=== PATIENT | female | born 1940 | race Caucasian/White ===

== ENCOUNTER 2017-03-19 10:09 | Emergency (ER) | payer BC ==
[2017-03-19 10:20] VITALS: BP 135/87; PULSE 115; TEMP 97; BMI 23.0
[2017-03-19] MEDS ORDERED: LIDOCAINE 1%/EPI 1:100000 (20 ML MULTI DOSE VIAL) ONE (10:55)
--- NOTE | 2017-03-19 11:49 | PDOC ---
History of Present Illness - General Chief Complaint: Oral Ulcers Stated Complaint: SWOLLEN GUMS Time Seen by Provider: 03/19/17 10:36 History Source: Patient Exam Limitations: No Limitations - History of Present Illness Initial Comments: 03/19/17 11:41 Patient came to emergency department with persistent bleeding gums, lower front tooth edge. Patient has known "small bump" that intermittently bleeds. [facility] dentist and dental hygienist are aware of this area and have cleaned it carefully over the past few years. [facility] 2 days ago had an onset of bleeding and has had very difficult time getting the bleeding to stop where last night she said she had not been able to sleep all night due to the bleeding. Timing/Duration: unsure, getting worse Severity: mild, moderate Past History - Travel Traveled outside of the country in the last 30 days: No Close contact w/someone who was outside of country & ill: No - Past Medical History Allergies/Adverse Reactions: Allergies Allergy/AdvReac Type Severity Reaction Status Date / Time codeine Allergy Verified 03/19/17 10:21 cortisone Allergy Verified 03/19/17 10:21 Penicillins Allergy Verified 03/19/17 10:21 Sulfa (Sulfonamide Allergy Verified 03/19/17 10:21 Antibiotics) Asthma: Yes COPD: No HTN: Yes Hypercholesterolemia: Yes Thyroid Disease: Yes - Suicide/Smoking/Psychosocial Hx Smoking History: Never smoked Review of Systems - Review of Systems Able to Perform ROS?: Yes Is the patient limited Austrian proficient: Yes Constitutional: Yes: Symptoms Reported ( ), See HPI, Malaise. No: Chills, Fever HEENTM: Yes: Symptoms Reported, See HPI, Mouth Pain (lesion to the lower anterior aspect of gingival surface of lower front teeth times many years that intermittently bleeds), Dental Problems Musculoskeletal: No: Symptoms Reported Integumentary: No: Symptoms Reported *Physical Exam - Vital Signs Last Vital Signs Temp Pulse Resp BP Pulse Ox 97 F L 115 H 20 135/87 99 03/19/17 10:17 03/19/17 10:17 03/19/17 10:17 03/19/17 10:17 03/19/17 10:17 - Physical Exam General Appearance: Yes: Nourished, Appropriately Dressed, Apparent Distress, Mild Distress, Moderate Distress HEENT: positive: TMs Normal, Pharynx Normal, Other (lesion noted between the 2 lower front teeth at the tooth insertion site consistent with a small angioma that is actively bleeding, does not appear pulsatile however active. Dentition are intact, no other gingival injury/lesion or any obvious dental decay.) Neck: positive: Supple. negative: Lymphadenopathy (R), Lymphadenopathy (L) Respiratory/Chest: positive: Lungs Clear, Normal Breath Sounds Gastrointestinal/Abdominal: positive: Soft. negative: Tender Extremity: positive: Normal Capillary Refill, Normal Inspection Integumentary: positive: Normal Color. negative: Pale Neurologic: positive: general cargo clerk II-XII NML intact, Fully Oriented, Alert, Normal Mood/ Affect, Normal Response, Motor Strength 5/5 Procedures - Additional Procedures Additional Procedures: other (cauterization of bleeding angioma to anterior lower gum achieved by using 2% lidocaine with epinephrine approximately 1 mL. No recurrence of bleeding after approximately 30 minutes of observation) *DC/Admit/Observation/Transfer Diagnosis at time of Disposition: Angioma - Discharge Dispostion Disposition: HOME Condition at time of disposition: Stable Admit: No - Referrals Referrals: Addi Ureña MD [Primary Care Provider] - - Patient Instructions Additional Instructions: Rest, drink lots of cold fluids: water, ice chips keep mouth clean and rinse after each meal Avoid hard chewing foods, stick to ice cream, Jell-O, yogurt etc. Bleeding reoccurs, use gauze as directed to hold pressure on area for 15 minutes nonstop. If bleeding does not stop may return to emergency department Tylenol or Motrin for fever and pain Seek dental appointment as soon as possible for evaluation of dental injury/pain Followup with private physician in one to 2 days as needed Return to emergency department for worsened symptoms, fevers, swelling to face or worsened pain - Post Discharge Activity
== END 2017-03-19 12:09 | disposition home or self-care (01) ==
LOC: JER 10:09 → JERFT 10:09
DX: D18.09 Hemangioma of other sites (principal); I10 Essential (primary) hypertension; E78.00 Pure hypercholesterolemia, unspecified; E07.89 Other specified disorders of thyroid
CPT/HCPCS: 99281-25

== ENCOUNTER 2024-03-29 18:18 | Inpatient (IN) | payer BC ==
[2024-03-29 18:42] VITALS: BMI 24.7
[2024-03-29 20:37] LABS: BASO % 0.1 % (0-2.0); HEMATOCRIT 39.7 % (32.4-45.2); HEMOGLOBIN 13.4 GM/dL (10.7-15.3); LYMPH % 3.3 % (8-40); MCHC 33.7 g/dl (32.0-36.0); MEAN CELL VOLUME 88.9 fl (80-96); MEAN PLT VOLUME 7.5 fl (7.5-11.1); MONO % 5.5 % (3.8-10.2); NEUT % 91.1 % (42.8-82.8); PLATELET COUNT 254 10^3/uL (134-434); RBC 4.46 M/mm3 (3.60-5.2); WHITE BLOOD COUNT 14.5 K/mm3 (4.0-10.0)
[2024-03-29 20:53] LABS: POTASSIUM 3.4 mmol/L (3.5-5.1)
[2024-03-29 20:55] LABS: CALCIUM 9.4 mg/dL (8.5-10.1)
[2024-03-29 20:56] LABS: ALBUMIN 3.9 g/dl (3.4-5.0); BLOOD UREA NITROGEN 12.9 mg/dL (7-18)
[2024-03-29 20:59] LABS: CREATININE 0.5 mg/dL (0.55-1.3)
[2024-03-29] MEDS: SODIUM CHLORIDE 0.9% 500 ML INFUS.BAG IV ONE (21:00)
[2024-03-29 21:01] LABS: BILIRUBIN,TOTAL 1.1 mg/dL (0.2-1); TOT PROT 7.1 g/dl (6.4-8.2)
[2024-03-29 21:07] LABS: ANISOCYTOSIS 1+; MACROCYTOSIS 0
[2024-03-29 23:06] LABS: PH,URINE 7.5 (5.0-8.0); URINE APPEARANCE CLEAR; URINE BILIRUBIN NEGATIVE (NEGATIVE); URINE COLOR YELLOW; URINE GLUCOSE (UA) NEGATIVE (NEGATIVE); URINE KETONE 1+ (NEGATIVE); URINE LEUK ESTERASE 1+ (NEGATIVE); URINE NITRITE NEGATIVE (NEGATIVE); URINE PROTEIN NEGATIVE (NEGATIVE); URINE UROBILINOGEN 0.2 mg/dL (0.2-1.0)
[2024-03-29 23:09] LABS: EPI CELLS 1.6 /uL (0-25.1); HYALINE CASTS 0.27 /uL (0-3.1); URINE BACTERIA 44.3 /uL (0-1359); URINE RBC 28.1 /uL (0-23.9)
[2024-03-29] MEDS ORDERED: ASPIRIN 81 MG CHEWABLE TABLETS ONE (23:51)
[2024-03-29] MEDS: ASPIRIN 81 MG CHEWABLE TABLETS PO ONE (23:56)
[2024-03-30 00:28] LABS: INR 1.02 (0.83-1.09); PROTHROMBIN TIME (PATIENT) 11.1 SEC (9.7-13.0)
[2024-03-30 00:31] LABS: ACTIVATED PTT 30.9 SECONDS (25.2-36.5)
[2024-03-30] MEDS ORDERED: POTASSIUM CHLORIDE ORAL LIQUID 20 MEQ/15 ML ONE (01:07)
[2024-03-30] MEDS: POTASSIUM CHLORIDE TABS 20 MEQ TABLET.ER (FP) PO ONE (01:12)
[2024-03-30] MEDS ORDERED: ACETAMINOPHEN 325 MG TABLET (FP) PO PRN (05:52)
[2024-03-30] MEDS: LEVOTHYROXINE NA 25 MCG TABLET (FP) PO SCH (06:35)
[2024-03-30] MEDS: ACETAMINOPHEN 325 MG TABLET (FP) PO PRN (07:04)
[2024-03-30 08:13] LABS: BASO % 0.1 % (0-2.0); HEMATOCRIT 38.1 % (32.4-45.2); HEMOGLOBIN 13.1 GM/dL (10.7-15.3); LYMPH % 9.5 % (8-40); MCH 30.9 pg (25.7-33.7); MCHC 34.6 g/dl (32.0-36.0); MEAN CELL VOLUME 89.4 fl (80-96); MONO % 9.3 % (3.8-10.2); NEUT % 81.1 % (42.8-82.8); PLATELET COUNT 275 10^3/uL (134-434); RBC 4.26 M/mm3 (3.60-5.2); RDW 12.9 % (11.6-15.6)
[2024-03-30 08:28] LABS: POTASSIUM 3.7 mmol/L (3.5-5.1)
[2024-03-30 08:34] LABS: CALCIUM 8.9 mg/dL (8.5-10.1)
[2024-03-30 08:35] LABS: ALBUMIN 3.5 g/dl (3.4-5.0); BLOOD UREA NITROGEN 10.6 mg/dL (7-18); MAGNESIUM 2.2 mg/dL (1.8-2.4)
[2024-03-30 08:38] LABS: BILIRUBIN,TOTAL 1.1 mg/dL (0.2-1); CREATININE 0.5 mg/dL (0.55-1.3); TOT PROT 6.4 g/dl (6.4-8.2)
[2024-03-30 08:39] LABS: PHOSPHOROUS 2.5 mg/dL (2.5-4.9)
[2024-03-30] MEDS: CEFTRIAXONE 1 G/50 ML PREMIX 50 ML IVPB SCH (09:38)
[2024-03-30] MEDS ORDERED: CEFTRIAXONE 1 G/50 ML PREMIX 50 ML IVPB SCH (10:00)
[2024-03-30] MEDS ORDERED: PATIENT'S OWN MEDICATION (NON-FORMULARY) (Lifitegrast [Xiidra] 1 EACH Droperette) OP SCH (10:00)
[2024-03-30] MEDS ORDERED: ENOXAPARIN NA (PORCINE) 40 MG/0.4 ML DISP.SYRIN SQ SCH (10:00)
[2024-03-30] MEDS: amLODIPine BESYLATE 5 MG TABLET (FP) PO SCH (10:01)
[2024-03-30] MEDS: ENOXAPARIN NA (PORCINE) 60 MG/0.6 ML DISP.SYRIN SQ ONE (10:01)
[2024-03-30] MEDS: VERAPAMIL HCL 240 MG E.R. TABLET PO SCH (10:01)
[2024-03-30] MEDS: CLOPIDOGREL BISULFATE 75 MG TABLET (FP) PO SCH (10:01)
[2024-03-30] MEDS: SODIUM CHLORIDE 1,000 ML IV SCH (10:02)
[2024-03-30] MEDS: AMITRIPTYLINE HCL 25 MG TABLET PO SCH (11:09)
[2024-03-30] MEDS: PATIENT'S OWN MEDICATION (NON-FORMULARY) (Lifitegrast [Xiidra] 1 EACH) OP SCH (13:48)
[2024-03-30] MEDS: ENOXAPARIN NA (PORCINE) 60 MG/0.6 ML DISP.SYRIN SQ SCH (21:55)
[2024-03-31] MEDS: ARTIFICIAL TEARS OPHTHALMIC DROPS OU ONE (02:08)
[2024-03-31] MEDS: AMITRIPTYLINE HCL 25 MG TABLET PO ONE (02:09)
[2024-03-31 07:41] LABS: HEMATOCRIT 37.8 % (32.4-45.2); HEMOGLOBIN 12.5 GM/dL (10.7-15.3); MCH 30.2 pg (25.7-33.7); MCHC 33.2 g/dl (32.0-36.0); MEAN CELL VOLUME 90.9 fl (80-96); PLATELET COUNT 218 10^3/uL (134-434); RBC 4.16 M/mm3 (3.60-5.2); RDW 13.1 % (11.6-15.6); WHITE BLOOD COUNT 5.3 K/mm3 (4.0-10.0)
[2024-03-31 08:02] LABS: POTASSIUM 3.2 mmol/L (3.5-5.1)
[2024-03-31 08:04] LABS: MAGNESIUM 1.9 mg/dL (1.8-2.4)
[2024-03-31 08:05] LABS: BLOOD UREA NITROGEN 6.6 mg/dL (7-18); CALCIUM 8.2 mg/dL (8.5-10.1)
[2024-03-31 08:08] LABS: CREATININE 0.4 mg/dL (0.55-1.3)
[2024-03-31 08:09] LABS: TOT PROT 5.9 g/dl (6.4-8.2)
[2024-03-31] MEDS ORDERED: ENOXAPARIN NA (PORCINE) 60 MG/0.6 ML DISP.SYRIN SQ SCH (10:00)
[2024-03-31] MEDS: AMITRIPTYLINE HCL 25 MG TABLET PO SCH (21:46)
[2024-03-31] MEDS: ATORVASTATIN CA 40 MG TABLET (FP) PO SCH (21:46)
[2024-03-31] MEDS: POTASSIUM CHLORIDE TABS 20 MEQ TABLET.ER (FP) PO SCH (21:47)
[2024-03-31] MEDS ORDERED: ATORVASTATIN CA 40 MG TABLET (FP) PO SCH (22:00)
[2024-03-31] MEDS ORDERED: ATORVASTATIN CA 80 MG TABLET (FP) PO SCH (22:00)
[2024-03-31] MEDS: POTASSIUM CHLORIDE ORAL LIQUID 20 MEQ/15 ML PO ONE (22:28)
[2024-04-01 08:12] LABS: POTASSIUM 3.4 mmol/L (3.5-5.1)
[2024-04-01 08:14] LABS: ALBUMIN 3.2 g/dl (3.4-5.0); BLOOD UREA NITROGEN 8.1 mg/dL (7-18); CALCIUM 8.6 mg/dL (8.5-10.1)
[2024-04-01 08:18] LABS: CREATININE 0.3 mg/dL (0.55-1.3)
[2024-04-01 08:19] LABS: BILIRUBIN,TOTAL 0.9 mg/dL (0.2-1); TOT PROT 6.6 g/dl (6.4-8.2)
[2024-04-02 08:07] LABS: BASO % 0.4 % (0-2.0); EOS % 1.4 % (0-4.5); LYMPH % 21.3 % (8-40); MCHC 33.4 g/dl (32.0-36.0); MEAN CELL VOLUME 89.9 fl (80-96); MEAN PLT VOLUME 7.8 fl (7.5-11.1); MONO % 10.5 % (3.8-10.2); NEUT % 66.4 % (42.8-82.8); PLATELET COUNT 259 10^3/uL (134-434); RBC 4.68 M/mm3 (3.60-5.2); WHITE BLOOD COUNT 4.9 K/mm3 (4.0-10.0)
[2024-04-02 08:09] LABS: POTASSIUM 3.5 mmol/L (3.5-5.1)
[2024-04-02 08:16] LABS: BLOOD UREA NITROGEN 11.4 mg/dL (7-18)
[2024-04-02 08:17] LABS: ALBUMIN 3.1 g/dl (3.4-5.0); MAGNESIUM 2.1 mg/dL (1.8-2.4)
[2024-04-02 08:20] LABS: CREATININE 0.4 mg/dL (0.55-1.3)
[2024-04-02 08:21] LABS: TOT PROT 6.2 g/dl (6.4-8.2)
[2024-04-02 08:25] LABS: BILIRUBIN,TOTAL 0.9 mg/dL (0.2-1)
[2024-04-02] MEDS: ENOXAPARIN NA (PORCINE) 40 MG/0.4 ML DISP.SYRIN SQ SCH (10:50)
[2024-04-02] MEDS: metoPROLOL SUCCINATE 25 MG TAB.SR.24H (FP) PO SCH (12:41)
[2024-04-03 07:38] LABS: BASO % 0.4 % (0-2.0); EOS % 3.1 % (0-4.5); HEMATOCRIT 40.3 % (32.4-45.2); HEMOGLOBIN 13.6 GM/dL (10.7-15.3); MCH 30.4 pg (25.7-33.7); MCHC 33.7 g/dl (32.0-36.0); MEAN CELL VOLUME 90.4 fl (80-96); MEAN PLT VOLUME 7.8 fl (7.5-11.1); NEUT % 57.5 % (42.8-82.8); PLATELET COUNT 254 10^3/uL (134-434); RBC 4.45 M/mm3 (3.60-5.2); RDW 13.1 % (11.6-15.6); WHITE BLOOD COUNT 4.3 K/mm3 (4.0-10.0)
[2024-04-03 07:49] LABS: POTASSIUM 3.6 mmol/L (3.5-5.1)
[2024-04-03 07:52] LABS: CALCIUM 8.7 mg/dL (8.5-10.1)
[2024-04-03 07:53] LABS: BLOOD UREA NITROGEN 19.8 mg/dL (7-18)
[2024-04-03 07:56] LABS: CREATININE 0.5 mg/dL (0.55-1.3); MAGNESIUM 2.2 mg/dL (1.8-2.4)
[2024-04-03 07:57] LABS: BILIRUBIN,TOTAL 0.8 mg/dL (0.2-1)
[2024-04-03] MEDS: amLODIPine BESYLATE 5 MG TABLET (FP) PO SCH (09:34)
[2024-04-03] MEDS: ARTIFICIAL TEARS OPHTHALMIC DROPS OU PRN (16:12)
[2024-04-04 09:13] LABS: BASO % 0.3 % (0-2.0); EOS % 2.6 % (0-4.5); HEMATOCRIT 38.6 % (32.4-45.2); HEMOGLOBIN 13.2 GM/dL (10.7-15.3); LYMPH % 22.8 % (8-40); MCH 30.5 pg (25.7-33.7); MCHC 34.2 g/dl (32.0-36.0); MEAN CELL VOLUME 89.2 fl (80-96); MEAN PLT VOLUME 8.1 fl (7.5-11.1); MONO % 10.9 % (3.8-10.2); NEUT % 63.4 % (42.8-82.8); PLATELET COUNT 273 10^3/uL (134-434); RBC 4.33 M/mm3 (3.60-5.2); RDW 13.1 % (11.6-15.6); WHITE BLOOD COUNT 4.7 K/mm3 (4.0-10.0)
[2024-04-04 09:28] LABS: POTASSIUM 3.9 mmol/L (3.5-5.1)
[2024-04-04 09:35] LABS: CALCIUM 8.8 mg/dL (8.5-10.1)
[2024-04-04 09:36] LABS: BLOOD UREA NITROGEN 16.4 mg/dL (7-18); MAGNESIUM 2.2 mg/dL (1.8-2.4)
[2024-04-04 09:39] LABS: CREATININE 0.4 mg/dL (0.55-1.3)
[2024-04-04 09:40] LABS: BILIRUBIN,TOTAL 0.6 mg/dL (0.2-1)
[2024-04-04] MEDS: EZETIMIBE 10 MG TABLET (FP) PO SCH (10:33)
[2024-04-04 12:56] VITALS: RESP 16
[2024-04-04 14:24] VITALS: BP 113/74; PULSE 114; TEMP 99.1
== END 2024-04-04 05:10 | DRG 64 ==
LOC: JER 18:18 → JERBED 03-30 00:04 → OBSVTOIN 03-30 00:48 → J4S 03-30 02:08
PROVIDERS: ADMIT Internal Medicine; ATTEND Nurse Practitioner Family
DX: I63.9 Cerebral infarction, unspecified (principal); I21.4 Non-ST elevation (NSTEMI) myocardial infarction; E03.9 Hypothyroidism, unspecified; I10 Essential (primary) hypertension; E78.5 Hyperlipidemia, unspecified; E87.6 Hypokalemia; R47.1 Dysarthria and anarthria; R13.10 Dysphagia, unspecified; R74.8 Abnormal levels of other serum enzymes
CPT/HCPCS: 0241U-QW; 36415; 70450-TC; 70544-TC; 70551-TC; 71045-TC-FY; 72125-TC; 76705-TC; 80053; 80061; 81003; 82550; 82553; 82962; 83036; 83735; 84100; 84439; 84443; 84484; 85025; 85027; 85610; 85730; 87086; 93005; 93010; 93306-TC; 97116-GP; 97162-GP; 99285-25; G0378